=== PATIENT | male | born 1970 | race Caucasian/White ===

== ENCOUNTER 2017-08-28 05:47 | Day surgery (SDC) | payer BC ==
[2017-08-28] MEDS ORDERED: Ketamine HCl 50 MG/ML IV ONE (05:48)
[2017-08-28] MEDS ORDERED: DIPRIVAN 200 MG/20 ML IV ONE (05:48)
[2017-08-28] MEDS ORDERED: Lactated Ringers 1,000 ML IV SCH (06:30)
[2017-08-28 07:54] VITALS: O2SAT 98
[2017-08-28 08:08] VITALS: PULSE 52
[2017-08-28 08:09] VITALS: BP 125/82
--- NOTE | 2017-08-28 09:34 | OP ---
SURGERY DATE/TIME: 08/28/2017 0700 PREOPERATIVE DIAGNOSIS: Epigastric abdominal pain. POSTOPERATIVE DIAGNOSIS: Normal exam. PROCEDURE: EGD. SURGEON: Kvng Kirk M.D. ANESTHESIA: MAC by Tomer Muse CRNA. ESTIMATED BLOOD LOSS: None. SPECIMENS: None. DESCRIPTION OF PROCEDURE: After informed written consent was obtained, the patient was taken to the endoscopy suite. He underwent monitored anesthesia and a bite block was inserted. The endoscope was passed into the posterior oropharynx and under direct visualization the esophagus was easily traversed. The esophageal mucosa had a normal appearance free of any lesions or defects. Gastroesophageal junction likewise had a normal mucosa appearance. The gastric mucosa was free of lesions or defects. The gastric antrum was inspected and noted to be within normal limits. The pylorus was traversed and the first and second portions of the duodenum had no obvious mucosal abnormalities. Upon withdrawal again all mucosal structures appeared within normal limits and there were no suspicious areas. The scope was removed and the patient was transferred to the recovery room in excellent condition.
== END 2017-08-28 08:08 | disposition home or self-care (01) ==
LOC: SDC 05:47
PROVIDERS: ATTEND Family Medicine
PROC: 0DJ08ZZ Inspection of Upper Intestinal Tract, Via Natural or Artificial Opening Endoscopic (ICD-10-PCS; principal; 2017-08-28)
DX: R10.13 Epigastric pain (principal)
CPT/HCPCS: 00731; J2704

== ENCOUNTER 2022-10-26 06:56 | Day surgery (SDC) | payer BC ==
[2022-10-26 07:20] VITALS: O2SAT 97
[2022-10-26] MEDS ORDERED: Lactated Ringers 1,000 ML IV SCH (07:30)
[2022-10-26] MEDS ORDERED: Xylocaine-Mpf 2% 5 Ml Vial ONE (08:02)
[2022-10-26] MEDS ORDERED: Versed 2 MG/2 ML Injection ONE (08:02)
[2022-10-26] MEDS ORDERED: DIPRIVAN 200 MG/20 ML IV ONE ×2 (08:02→08:18)
[2022-10-26 09:20] VITALS: BP 121/74; PULSE 60
--- NOTE | 2022-10-26 09:20 | OP ---
SURGERY DATE/TIME: 10/26/2022 0810 PREOPERATIVE DIAGNOSIS: Screening exam. POSTOPERATIVE DIAGNOSIS: Normal colon. PROCEDURE: Colonoscopy. SURGEON: Dr. Jackson. ANESTHESIA: MAC. Medications given by anesthesia department. HISTORY: The patient is a 52-year-old white male patient now presenting for screening colonoscopy. He was appraised of the risks of the procedure including the risk of perforation, phlebitis, untoward reaction to medication, bleeding and missed lesions. The patient verbalized his understanding and desired to have the procedure performed. DESCRIPTION OF PROCEDURE: The patient was given the medications by the anesthesia department. He had continuous pulse oximetry, ECG monitoring and intermittent blood pressure monitoring during the examination. He was placed in the left lateral decubitus position. A digital rectal examination was performed and revealed normal anal sphincter tone and no masses. The flexible Olympus pediatric colonoscope was used to intubate the rectum. A view of the colon was developed sequentially to the cecum. Upon insertion and withdrawal, including a retroflex view in the rectum, no mucosal lesions were encountered. The scope was removed from the patient who tolerated the procedure well and was sent back to OP recovery in good condition. The prep was noted to be fair to good.
== END 2022-10-26 09:20 | disposition home or self-care (01) ==
LOC: SDC 06:56
PROVIDERS: ATTEND Family Medicine
DX: Z12.11 Encounter for screening for malignant neoplasm of colon (principal)
CPT/HCPCS: J2250; J2704

== ENCOUNTER 2023-09-30 09:52 | Day surgery (SDC) | payer BC ==
--- NOTE | 2023-09-30 09:14 | HP ---
DATE OF SURGERY: 09/30/2023 HISTORY OF PRESENT ILLNESS: The patient is a 53-year-old who for the past year had a cyst on his back, flared up infected recently and improved with antibiotics now in need of excision. PAST MEDICAL HISTORY: Atrial fibrillation that was converted. PAST SURGICAL HISTORY: Appendectomy. Sinus surgery. Knee scope in the past. Pilonidal cyst in the past. MEDICATIONS: Testosterone intramuscular. ALLERGIES: NKDA. FAMILY HISTORY: Heart disease. SOCIAL HISTORY: No smoking or alcohol abuse. REVIEW OF SYSTEMS: Twelve systems reviewed. No chest pain or palpitations. Other systems negative or noncontributory as above and per preadmission questionnaire. PHYSICAL EXAMINATION: Height 5 feet 11 inches. BMI 29.99. GENERAL: No acute distress. HEENT: Sclerae nonicteric. EOMI. Oral mucous membranes moist. NECK: No JVD. CHEST: Equal excursion, nonlabored breathing. CVS: Regular rate and rhythm. ABDOMEN: Soft. EXTREMITIES: No cyanosis or edema. NEURO: Alert, oriented, moving extremities symmetrically. PSYCH: Appropriate mood and affect. SKIN: Dry. BACK: Lower back subcu cyst or nodule in need of excision. IMPRESSION: History of recently infected back cyst or nodule that needs excision. I feel he is a candidate. Risks and benefits explained in detail but not limited to bleeding or infection, risk of wound dehiscence possibly requiring packing, risk of hematoma or seroma formation, risk of aches, pains, burning or numbness. Risk of anesthesia, deep venous thrombosis, pulmonary embolism, or pneumonia but not limited to and he understands what we excise once he heals the wound will not recur but he could get similar cyst adjacent to or elsewhere on his body. He understands and agrees to the planned procedure. Will proceed with excisional biopsy of ruptured back cyst site as an outpatient under anesthesia.
[~2023-09-30 09:52] MED LIST: Lactated Ringers 1,000 ML IV ONE; Sensorcaine 0.25% 10 ML ONE
[2023-09-30] MEDS ORDERED: Lactated Ringers 1,000 ML IV ONE (10:11)
[2023-09-30] MEDS: Lactated Ringers 1,000 ML IV SCH (10:16)
[2023-09-30] MEDS ORDERED: CEFAZOLIN 2 GM-D5W BAG** 2 GM/50 ML ML IV ONE (10:17)
[2023-09-30] MEDS: CEFAZOLIN 2 GM-D5W BAG** 2 GM/50 ML ML IV SCH (10:19)
[2023-09-30 10:35] VITALS: RESP 16
[2023-09-30 12:03] LABS: ANION GAP 8.3 MEQ/L (5-15); Calcium 8.9 mg/dL (8.4-10.2); Creatinine 1 0.89 mg/dL (0.66-1.25); EST GLOMERULAR FILTRATION RATE 103.8 ML/MIN; Potassium 4.3 mmol/L (3.5-5.1)
[2023-09-30] MEDS ORDERED: DIPRIVAN 200 MG/20 ML IV ONE (12:40)
[2023-09-30] MEDS ORDERED: Xylocaine-Mpf 2% 5 Ml Vial ONE (12:41)
[2023-09-30] MEDS ORDERED: Zofran 4 MG/2 ML VIAL ONE (12:42)
[2023-09-30] MEDS ORDERED: Decadron 4 MG INJ ONE (12:42)
[2023-09-30] MEDS ORDERED: SUBLIMAZE 100 MCG/2 ML ONE ×2 (12:43→13:03)
[2023-09-30] MEDS ORDERED: Versed 2 MG/2 ML Injection ONE (12:47)
[2023-09-30] MEDS ORDERED: TORAdol 30 mg Injection ONE (13:12)
[2023-09-30 14:23] VITALS: BP 141/73; PULSE 74; TEMP 97.2; O2SAT 100
--- NOTE | 2023-10-01 10:03 | OP ---
SURGERY DATE/TIME: 09/30/2023 1243 PREOPERATIVE DIAGNOSIS: Prior history of ruptured back cyst on the back and persistent indurated area in need of excision prior infected site. POSTOPERATIVE DIAGNOSIS: Persistent indurated prior history of back infected cyst. PROCEDURE: Excisional biopsy prior history of back infection site (2 cm). SURGEON: Tomer Bazan M.D. ANESTHESIA: General. ESTIMATED BLOOD LOSS: Minimal. INDICATIONS: The site was confirmed and marked with the patient and the patient's in the holding area preoperatively. The area was much improved when he was in the office. Apparently the and patient were quite concerned about the risk of recurrent infection and desire to have this area excised. I felt it was reasonable to excise this indurated area. The site was marked. DESCRIPTION OF PROCEDURE AND FINDINGS: He is taken to the operating room. General anesthesia induced, placed in lateral position. The back is prepped and draped in usual sterile fashion. After official time out and no disagreement with planned procedure, spindle-shaped excision around the area in question. Dissection carried down to the underlying fascia. Specimen passed off. It was kind of an indurated area of back infection site passed off measuring about 2 cm in size. The wound irrigated out. Good hemostasis noted. There did not appear to be any evidence of any cyst material in the base of the wound. The deep and superficial subcu closed with 3-0 Vicryl. Skin closed with 4-0 Vicryl, interrupted 3-0 Prolene used to reinforce the area. Steri-Strips and sterile dressing applied. The patient tolerated the procedure well. There were no immediate complications. Findings discussed with the family out in the waiting area.
== END 2023-09-30 14:27 | disposition home or self-care (01) ==
LOC: SDC 09:52
PROVIDERS: ATTEND Surgery
DX: L72.0 Epidermal cyst (principal)
CPT/HCPCS: 36415; 80048; 93005; J0690; J1100; J1885; J2250; J2405; J2704; J3010